=== PATIENT | male | born 1995 | race African-American/Black ===

== ENCOUNTER 2020-01-13 18:14 | Emergency (ER) | payer SELFPAY ==
[~2020-01-13] VITALS: Ht 175.3 cm; Wt 81.6 kg
--- NOTE | 2020-01-13 18:11 | NUR ---
ED Nurse Note: Pt brought in by amulance from a 03/29 d/t fentanyl overdose 1-2 hours ago. Per pt's friend, pt loss consciousness and stopped breathing. Friend told EMS that he started CPR. When EMS showed up, pt was A+Ox2. Pt received 4 mg narcan IM from EMS. Pt reports snorting the fentanyl because he was "stressed." Pt denies SI/HI. Pt says he is staying at his friend's house right now and wishes to be in treatment as he is an "ex-heroin user." Respirations even and unlabored on room air. Vitals stable as documented. A+Ox4. Addendum: 01/13/20 at 1831 by JOHANNE Correction: Pt smoked the fentanyl
[2020-01-13 18:14] VITALS: BP 128/74
--- NOTE | 2020-01-13 18:25 | NUR ---
ED Nurse Note: [employer] @ bedside to speak with patient
--- NOTE | 2020-01-13 18:30 | NUR ---
ED Nurse Note: O2 saturation 98% on room air
--- NOTE | 2020-01-13 19:10 | NUR ---
ED Nurse Note: report received from DEBORA Cisneros. Pt resting in bed comfortably, no ss of distress noted. VSS. Will continue to monitor.
--- NOTE | 2020-01-13 19:10 | NUR ---
HAND-OFF: Report given to DEBORA Roca. Pt in stable condition; plan of care endorsed.
--- NOTE | 2020-01-13 19:15 | Emergency Room Report ---
History of Present Illness General Chief Complaint: Overdose Source: Patient, EMS Present Illness HPI Patient is a 24-year-old male who presents after overdose on fentanyl. He reports having previous history of opiate abuse and states he is currently attempting to get back into rehab. Reports having recent cocaine use as well. States he has never used fentanyl before but usually uses heroin. Denies any current complaints. He had been given Narcan 4 mg intranasally. He denies any chest pain or shortness of breath. Denies any nausea or vomiting. Allergies: Coded Allergies: No Known Allergies (Unverified , 01/13/20) COVID-19 Screening Contact w/high risk pt: No Recent Travel to affected area: No Experienced COVID-19 symptoms?: No Patient History Past Medical History: see triage record Reviewed Nursing Documentation: PMH: Agreed; PSxH: Agreed Review of Systems All Other Systems: negative except mentioned in HPI Physical Exam Vital Signs Date Time Temp Pulse Resp B/P (MAP) Pulse Ox O2 Delivery O2 Flow Rate FiO2 01/13/20 18:03 98.1 105 20 123/70 (87) 98 Room Air Sp02 EP Interpretation: reviewed, normal General Appearance: normal inspection, well appearing, no apparent distress, alert, GCS 15 Head: atraumatic ENT: normal ENT inspection, hearing grossly normal, normal voice Neck: normal inspection, full range of motion, supple, no bony tend Respiratory: normal inspection, lungs clear, normal breath sounds, no respiratory distress, no retraction, no wheezing Cardiovascular #1: regular rate, rhythm, no edema Gastrointestinal: normal inspection, normal bowel sounds, non tender, soft, no guarding, no hernia Genitourinary: no CVA tenderness Musculoskeletal: normal inspection, back normal, normal range of motion Neurologic: alert, ultrasound manager III-XII nml as tested, oriented x3, responsive, speech normal, normal inspection Psychiatric: normal inspection, judgement/insight normal, mood/affect normal Skin: no rash Medical Decision Making Diagnostic Impression: Primary Impression: Drug overdose ER Course Patient presented for opiate overdose. Differential diagnosis include was not limited to long-acting opioid,, ingestion, intentional overdose among others. Patient has a benign exam and does not appear to require any imaging or laboratory testing at this time. Patient does not appear to be any respiratory distress. Appears to be awake and alert. Patient was observed in the emergency department. Patient will be discharged after period of observation. He is advised to follow-up with outpatient substance abuse treatment. At the time of discharge patient was awake alert and ambulatory without assistance. He contacted a friend to pick him upThe patient is advised to follow up with primary care doctor in 1-2 days. Patient is advised to return if any worsening condition or if any changes in status that are concerning. This report is dictated with [employer] food and beverage manager software which may occasionally lead to discrepancies related to use of this software. Last Vital Signs Date Time Temp Pulse Resp B/P (MAP) Pulse Ox O2 Delivery O2 Flow Rate FiO2 01/13/20 18:14 98.1 105 20 128/74 99 Room Air Status: improved Disposition: HOME, SELF-CARE Condition: Stable Scripts Naloxone HCl (Narcan) 4 Mg [place] 4 MG NS ONCE for overdose, #1 SPRAY Prov: Ari Chin MD 01/13/20 Ari Chin MD Jan 13, 2020 19:15
[2020-01-13] MEDS ORDERED: NARCAN4 MG NS (19:17)
[2020-01-13 20:10] VITALS: BP 121/76
--- NOTE | 2020-01-13 20:10 | NUR ---
ER DISCHARGE NOTE: Patient is cleared to be discharged home per ERMD, pt is aox4, 100% on room air, with stable vital signs. pt was given dc and prescription instructions, pt was able to verbalize understanding, pt id band removed. pt is able to ambulate with steady gait. pt took all belongings.
== END 2020-01-13 20:10 | disposition home or self-care (01) ==
LOC: EDBD 18:14 → EMR 18:50
DX: T40.4X1A Poisoning by other synthetic narcotics, accidental (unintentional), initial encounter (principal); X58.XXXA Exposure to other specified factors, initial encounter; Y92.9 Unspecified place or not applicable
CPT/HCPCS: 99282